=== PATIENT | female | born 1940 | race Caucasian/White ===

== ENCOUNTER 2021-11-25 08:54 | Day surgery (SDC) | payer OTHER ==
[~2021-11-25] VITALS: Ht 154.9 cm; Wt 87.8 kg
[~2021-11-25 08:54] MED LIST: ESTRADIOL; LEVOXYL PO; PANT40 PO; VENL25 PO
--- NOTE | 2021-11-25 10:05 | NUR ---
11/25/21 1005 KAYLIE DC History, Chart, Medications and Allergies reviewed before start of procedure. 3-LEAD EKG REVIEWED WITH PHYSICIAN PRIOR TO START OF PROCEDURE. O2 VIA POM INTACT THROUGHOUT SEDATION/PROCEDURE. MONITOR INTACT WITH CONTINUOUS PULSE OXIMETRY AND INTERMITTENT BP. HURRICAINE SPRAY TO OROPHARYX. GENERAL WITH DR. ESCAMILLA.
--- NOTE | 2021-11-25 10:49 | NUR ---
RECIEVED REPORT FROM KAYLIE DC RN. PT ALERT AND ORIENTED, BUT RESTING COMFORTABLY IN BED.
--- NOTE | 2021-11-25 11:25 | NUR ---
Patient up to Ambulate independently. Gait steady. Discharge instructions reviewed with patient. Patient verbalizes understanding. Copy given to patient to take home. Patient States Post-Procedure ride home has been arranged. Discharged via wheelchair to private car for ride home. ALL BELONGINGS RETURNED TO PATIENT.
== END 2021-11-25 22:34 | disposition home or self-care (01) ==
LOC: ORSCMMR 08:54 → ORD 09:45 → ORSCMMR 09:45
PROVIDERS: Internal Medicine Gastroenterology
PROC: 0DB48ZX Excision of Esophagogastric Junction, Via Natural or Artificial Opening Endoscopic, Diagnostic (ICD-10-PCS; principal; 2021-11-25 09:45)
PROC: 0DBL8ZX Excision of Transverse Colon, Via Natural or Artificial Opening Endoscopic, Diagnostic (ICD-10-PCS; principal; 2021-11-25 09:45)
PROC: 0DBK8ZX Excision of Ascending Colon, Via Natural or Artificial Opening Endoscopic, Diagnostic (ICD-10-PCS; principal; 2021-11-25 09:45)
PROC: 0DBP8ZX Excision of Rectum, Via Natural or Artificial Opening Endoscopic, Diagnostic (ICD-10-PCS; principal; 2021-11-25 09:45)
PROC: 0DB78ZX Excision of Stomach, Pylorus, Via Natural or Artificial Opening Endoscopic, Diagnostic (ICD-10-PCS; principal; 2021-11-25 09:45)
DX: K21.9 Gastro-esophageal reflux disease without esophagitis (principal); Z12.11 Encounter for screening for malignant neoplasm of colon; Z86.010 Personal history of colon polyps; D12.2 Benign neoplasm of ascending colon; D12.3 Benign neoplasm of transverse colon; D12.8 Benign neoplasm of rectum; K57.30 Diverticulosis of large intestine without perforation or abscess without bleeding; K29.70 Gastritis, unspecified, without bleeding; G47.33 Obstructive sleep apnea (adult) (pediatric); E03.9 Hypothyroidism, unspecified; F32.A Depression, unspecified; Z79.899 Other long term (current) drug therapy
CPT/HCPCS: 88305; 88342; A9270; J2704; J7120

== ENCOUNTER → 2022-06-04 | Outpatient (CLI) | payer OTHER | END | disposition home or self-care (01) | LOC: LAB 13:40 → PLD 13:40 → LAB SHORT 13:40 | DX: N95.0 Postmenopausal bleeding (principal) | CPT/HCPCS: 88305 ==

== ENCOUNTER 2023-08-16 07:06 | Day surgery (SDC) | payer OTHER ==
[~2023-08-16] VITALS: Ht 154.9 cm; Wt 78.1 kg
[~2023-08-16 07:06] MED LIST changes: +ACETAMINOPHEN500 M2 PO; +LEVSOD75 PO
--- NOTE | 2023-08-16 07:55 | NUR ---
08/16/23 0755 Eitan Bishop CALL LIGHT WITHIN REACH
[2023-08-16 09:12] VITALS: BP 144/71
--- NOTE | 2023-08-16 09:14 | NUR ---
08/16/23 0913 Wolf Mayorga IV REMOVED INTACT. SITE WNL.
== END 2023-08-16 09:11 | disposition home or self-care (01) ==
LOC: ORSCSDS 07:06
PROVIDERS: Student in an Organized Health Care Education/Training Program
PROC: 08DJ3ZZ Extraction of Right Lens, Percutaneous Approach (ICD-10-PCS; principal; 2023-08-16 08:30)
DX: H25.11 Age-related nuclear cataract, right eye (principal); G47.33 Obstructive sleep apnea (adult) (pediatric); K21.9 Gastro-esophageal reflux disease without esophagitis; H35.30 Unspecified macular degeneration; F41.9 Anxiety disorder, unspecified; F32.A Depression, unspecified; Z87.891 Personal history of nicotine dependence; Z79.899 Other long term (current) drug therapy
CPT/HCPCS: J2250; J7040; V2632

== ENCOUNTER 2023-08-30 08:15 | Day surgery (SDC) | payer OTHER ==
[~2023-08-30] VITALS: Ht 154.9 cm; Wt 78.0 kg
--- NOTE | 2023-08-30 08:40 | NUR ---
08/30/23 0840 MARIANNE DUPONT: 0831 PLEDGIT: [id number]
[2023-08-30 09:39] VITALS: BP 130/77
--- NOTE | 2023-08-30 12:33 | NUR ---
08/30/23 1232 Mary Fulton PATIENT STATES SIGNIFICANT RELIEF OF NAUSEA AFTER 4MG DOSE OF ONDANSETRON VIA IV PER ORDERS.
== END 2023-08-30 10:27 | disposition home or self-care (01) ==
LOC: ORSCSDS 08:15
PROVIDERS: Student in an Organized Health Care Education/Training Program
PROC: 08RK3JZ Replacement of Left Lens with Synthetic Substitute, Percutaneous Approach (ICD-10-PCS; principal; 2023-08-30 09:30)
DX: H25.12 Age-related nuclear cataract, left eye (principal); H35.30 Unspecified macular degeneration; Z96.1 Presence of intraocular lens; K21.9 Gastro-esophageal reflux disease without esophagitis; F32.A Depression, unspecified; E66.9 Obesity, unspecified; Z68.32 Body mass index [BMI] 32.0-32.9, adult; Z79.899 Other long term (current) drug therapy; Z87.891 Personal history of nicotine dependence
CPT/HCPCS: J1100; J2250; J2310; J2405; J3010; J7040; V2632

== ENCOUNTER 2025-07-08 20:28 | Inpatient (IN) | payer OTHER ==
[~2025-07-08] VITALS: Ht 154.9 cm; Wt 83.9 kg
[2025-07-08 21:25] LABS: BASOPHILS ABSOLUTE AUTO 0.04 K/mm3 (0.00-0.23); BASOPHILS PERCENT AUTO 0 % (0-2); EOSINOPHILS ABSOLUTE AUTO 0.14 K/mm3 (0.00-0.68); EOSINOPHILS PERCENT AUTO 1 % (0-6); Hematocrit 40.7 % (33.0-51.0); Hemoglobin 13.6 g/dL (11.5-16.0); IMMATURE GRAN ABSOLUTE AUTO 0.03 K/mm3 (0.00-0.10); IMMATURE GRAN PERCENT AUTO 0 % (0-1); LYMPHOCYTES ABSOLUTE AUTO 2.56 K/mm3 (0.84-5.20); LYMPHOCYTES PERCENT AUTO 26 % (21-46); MONOCYTES ABSOLUTE AUTO 0.83 K/mm3 (0.16-1.47); MONOCYTES PERCENT AUTO 8 % (4-13); Mean Corpuscular HGB Conc 33.4 g/dL (31.5-36.5); Mean Corpuscular Volume 87 fL (80-100); NEUTROPHILS ABSOLUTE AUTO 6.23 K/mm3 (1.96-9.15); NEUTROPHILS PERCENT AUTO 64 % (41-73); NRBC ABSOLUTE 0.00 K/mm3 (0.00-0.02); NRBC Auto 0.0 /100 WBC (0.0-0.2); Platelet Count 265 K/mm3 (150-400); RDW Coefficient Variation 14.6 % (11.7-14.2); RDW Standard Deviation 47.0 fL (35.1-46.3)
[2025-07-08 22:22] LABS: Alanine Aminotransfer (ALT/SGP 80.0 U/L (12-78); Albumin, Blood 3.5 g/dL (3.4-5.0); Albumin/Globulin Ratio 1.0 (0.8-1.8); Anion Gap 9.0 mmol/L (3-11); Aspartate Aminotrans (AST/SGOT 100.0 U/L (12-37); Bilirubin, Total 0.4 mg/dL (0.1-1.0); Blood Urea Nitrogen 12.0 mg/dL (8-24); CO2, Blood 24.0 mmol/L (21-32); Calcium, Blood 9.0 mg/dL (8.5-10.1); Chloride, Blood 108.0 mmol/L (98-108); Creatinine, Blood 0.71 mg/dL (0.40-1.00); Globulin, Blood 3.5 g/dL (2.2-4.0); Glucose, Blood 123.0 mg/dL (70-99); Potassium, Blood 4.0 mmol/L (3.5-5.5); Sodium, Blood 137.0 mmol/L (136-145); Total Protein, Blood 7.0 g/dL (6.4-8.2)
[2025-07-09] MEDS ORDERED: ONDA4ODT MM (00:28)
[2025-07-09 00:49] LABS: Source, Urine Clean Catch
[2025-07-09 00:53] LABS: Bilirubin, Urine Neg (Neg); Glucose Qualitative, Urine Neg (Neg); Ketones, Urine Neg (Neg); Leukocyte Esterase, Urine Neg (Neg); Protein, Urine Neg (Neg); Specific Gravity, Urine 1.010 (1.003-1.022); Urobilinogen, Urine 1+ (Normal)
[2025-07-09 01:08] LABS: Color, Urine Yellow (P-Yellow)
[2025-07-09 01:30] LABS: Prothrombin Time Results 10.6 Sec (9.7-11.5)
[2025-07-09] MEDS ORDERED: Ondansetron HCl 2 MG / ML 2ML Vial IV PRN (02:25)
[2025-07-09] MEDS ORDERED: Ketorolac Tromethamine 15mg Vial IV PRN (02:50)
[2025-07-09] MEDS ORDERED: Atarax10 MG PO (04:34)
[2025-07-09] MEDS ORDERED: GEMTESA75 MG PO (04:34)
[2025-07-09] MEDS ORDERED: EUTHYROX88 MCG PO (04:35)
[2025-07-09 05:46] VITALS: BP 162/76
[2025-07-09 06:27] LABS: BASOPHILS ABSOLUTE AUTO 0.04 K/mm3 (0.00-0.23); BASOPHILS PERCENT AUTO 0 % (0-2); EOSINOPHILS ABSOLUTE AUTO 0.12 K/mm3 (0.00-0.68); EOSINOPHILS PERCENT AUTO 1 % (0-6); Hematocrit 38.7 % (33.0-51.0); Hemoglobin 13.0 g/dL (11.5-16.0); IMMATURE GRAN ABSOLUTE AUTO 0.04 K/mm3 (0.00-0.10); IMMATURE GRAN PERCENT AUTO 0 % (0-1); LYMPHOCYTES ABSOLUTE AUTO 2.22 K/mm3 (0.84-5.20); LYMPHOCYTES PERCENT AUTO 20 % (21-46); MONOCYTES ABSOLUTE AUTO 0.88 K/mm3 (0.16-1.47); MONOCYTES PERCENT AUTO 8 % (4-13); Mean Corpuscular HGB Conc 33.6 g/dL (31.5-36.5); Mean Corpuscular Volume 87 fL (80-100); NEUTROPHILS ABSOLUTE AUTO 7.73 K/mm3 (1.96-9.15); NEUTROPHILS PERCENT AUTO 70 % (41-73); NRBC ABSOLUTE 0.00 K/mm3 (0.00-0.02); NRBC Auto 0.0 /100 WBC (0.0-0.2); Platelet Count 223 K/mm3 (150-400); RDW Coefficient Variation 14.6 % (11.7-14.2); RDW Standard Deviation 46.8 fL (35.1-46.3)
[2025-07-09 06:47] LABS: Alanine Aminotransfer (ALT/SGP 365.0 U/L (12-78); Albumin, Blood 3.3 g/dL (3.4-5.0); Albumin/Globulin Ratio 1.1 (0.8-1.8); Anion Gap 10.0 mmol/L (3-11); Aspartate Aminotrans (AST/SGOT 433.0 U/L (12-37); Bilirubin, Total 0.6 mg/dL (0.1-1.0); Blood Urea Nitrogen 14.0 mg/dL (8-24); CO2, Blood 26.0 mmol/L (21-32); Calcium, Blood 9.0 mg/dL (8.5-10.1); Chloride, Blood 105.0 mmol/L (98-108); Creatinine, Blood 0.71 mg/dL (0.40-1.00); Globulin, Blood 3.1 g/dL (2.2-4.0); Glucose, Blood 128.0 mg/dL (70-99); Magnesium, Blood 2.1 mg/dL (1.6-2.4); Potassium, Blood 3.7 mmol/L (3.5-5.5); Sodium, Blood 137.0 mmol/L (136-145); Total Protein, Blood 6.4 g/dL (6.4-8.2)
[2025-07-09 08:48] VITALS: BP 158/79
[2025-07-09] MEDS ORDERED: Enoxaparin 40 MG/0.4 ML SYR SC SCH (09:00)
[2025-07-09] MEDS ORDERED: NS 1,000 ML IV SCH (17:30)
--- NOTE | 2025-07-09 17:32 | NUR ---
PATIENT HAS BEEN NPO ALL DAY FOR MRI. TEST WAS DONE THIS AFTERNOON WAITING FOR RESULTS AND NEW ORDERS. PATIENT RESTING WITH CALL LIGHT AND BED IN LOW POSITION.
[2025-07-09 19:54] VITALS: BP 153/88
[2025-07-10 05:37] LABS: Hematocrit 36.9 % (33.0-51.0); Hemoglobin 12.3 g/dL (11.5-16.0); Mean Corpuscular HGB Conc 33.3 g/dL (31.5-36.5); Mean Corpuscular Volume 88 fL (80-100); NRBC ABSOLUTE 0.00 K/mm3 (0.00-0.02); NRBC Auto 0.0 /100 WBC (0.0-0.2); Platelet Count 202 K/mm3 (150-400); RDW Coefficient Variation 14.8 % (11.7-14.2); RDW Standard Deviation 47.8 fL (35.1-46.3)
--- NOTE | 2025-07-10 05:58 | NUR ---
SHIFT SUMMARY: PT AOX4, PT SBA WITH FWW TO THE BATHROOM, CALLS APPROPRIATELY AND ABLE TO MAKE NEEDS KNOWN. VERY PLEASANT AND COOPERATIVE IN CARE. TOLERATING MEDICATIONS WELL, PAIN MANAGED WELL WITH NSAIDS. NO ACUTE OVERNIGHT EVENTS. PT IN BED RESTING, BED IN LOWEST POSITION CALL LIGHT IN REACH. CONTINUING CARE.
[2025-07-10 06:13] LABS: Alanine Aminotransfer (ALT/SGP 213.0 U/L (12-78); Albumin, Blood 2.9 g/dL (3.4-5.0); Albumin/Globulin Ratio 1.0 (0.8-1.8); Anion Gap 8.0 mmol/L (3-11); Aspartate Aminotrans (AST/SGOT 142.0 U/L (12-37); Bilirubin, Total 0.8 mg/dL (0.1-1.0); Blood Urea Nitrogen 9.0 mg/dL (8-24); CO2, Blood 25.0 mmol/L (21-32); Calcium, Blood 8.2 mg/dL (8.5-10.1); Chloride, Blood 110.0 mmol/L (98-108); Creatinine, Blood 0.65 mg/dL (0.40-1.00); Globulin, Blood 2.9 g/dL (2.2-4.0); Glucose, Blood 73.0 mg/dL (70-99); Potassium, Blood 3.6 mmol/L (3.5-5.5); Sodium, Blood 139.0 mmol/L (136-145); Total Protein, Blood 5.8 g/dL (6.4-8.2)
[2025-07-10 06:15] VITALS: BP 162/73
[2025-07-10 07:31] VITALS: BP 150/77
[2025-07-10] MEDS ORDERED: NS 1,000 ML IV SCH (15:00)
[2025-07-10 15:37] VITALS: BP 155/84
--- NOTE | 2025-07-10 16:19 | NUR ---
PATIENT RESTED TODAY, SURGEON REVIEWED PLAN OF CARE WITH PATIENT AND SURGERY IS SCHEDULED FOR TOMORROW WITH DR. SALEEM. PATIENT WILL BE NPO AFTER MIDNIGHT AND REMAINS ON A CLEAR LIQUID DIET. PATIENT ATE 1 JELLO CUP, BUT DRINKING WATER TOLERATED.
[2025-07-10 20:15] VITALS: BP 130/84
[2025-07-11] VITALS (20 sets, daily range): BP systolic 141–190; BP diastolic 56–96
--- NOTE | 2025-07-11 06:38 | NUR ---
SHIFT SUMMARY PT ALERT AND ORIENTED TIMES 4. PT ADMITTED FOR BILATERAL ACUTE PANCREATITIS. PT IS STAND BY ASSIST TO TOILET PT HAS NORMAL SALINE FLUIDS RUNNING AT 100/HR. PT IS NPO FOR GALLBLADDER REMOVAL TODAY. PT APPEARED TO SLEEP THROUGHOUT THE NIGHT. PT IS RECEPTIVE TO CARE. PT TAKES MEDICATION WHOLE WITH WATER. PT TOOK MEDICATION WHOLE WITH WATER ONE AT A TIME. PT WAS TURNED Q2 FOR COMFORT AND SKIN BREAKDOWN.CALL LIGHT WITHIN REACH, RAILS TIMES 2, BED IN LOW POSITION.
[2025-07-11] MEDS ORDERED: Bupivacaine 0.25% Epi 1:200000 30 ML Vial ONE (07:36)
--- NOTE | 2025-07-11 07:43 | NUR ---
PT ESCOURTED VIA W/C TO DAY SURGERY.
[2025-07-11] MEDS ORDERED: HYDROmorphone HCl/Pf 1MG SYR IV PRN ×2 (07:50→11:45)
[2025-07-11] MEDS ORDERED: FentaNYL Citrate 50 MCG/ML 2 ML Injection IV PRN ×2 (07:55)
[2025-07-11] MEDS ORDERED: Albuterol 2.5 MG/3 ML VIAL INH PRN (07:55)
[2025-07-11] MEDS ORDERED: Ondansetron HCl 2 MG / ML 2ML Vial IV PRN ×2 (07:55→14:50)
--- NOTE | 2025-07-11 07:56 | NUR ---
PT HAS 22G IV TO LEFT HAND THAT FLUSHES WELL.
[2025-07-11] MEDS ORDERED: Rocuronium Bromide 10 MG/ML 5ML Injection IV ONE (07:57)
[2025-07-11] MEDS ORDERED: FentaNYL Citrate 50 MCG/ML 2 ML Injection ONE ×2 (08:01→12:19)
--- NOTE | 2025-07-11 08:18 | NUR ---
PT REPORTS 1/ ABDOMINAL PAIN AND NAUSEA. MED WITH ZOFRAN 4 MG IVP X 1-SEE EMAR. HISTORY AND ALLERGIES REVIEWED. LUNGS CLEAR. PT DENIES SOB. NPO STATUS CONFIRMED.
[2025-07-11] MEDS ORDERED: Bupivacaine 0.5% W/EPI 1:200000 SDV 30 ML Vial ONE (08:50)
[2025-07-11] MEDS ORDERED: Lidocaine HCl 4% 5 ML SDA ONE (10:16)
[2025-07-11] MEDS ORDERED: Ondansetron HCl 2 MG / ML 2ML Vial ONE ×2 (10:48→12:07)
[2025-07-11] MEDS ORDERED: Dexamethasone Sod Phos 10 MG/ML 1ML VIAL ONE (10:48)
[2025-07-11] MEDS ORDERED: Sugammadex Sodium 200 MG/2ML SDV (100 MG/ML) ONE (10:53)
[2025-07-11] MEDS ORDERED: Metoclopramide HCl 5MG / ML 2ML Vial ONE (12:16)
--- NOTE | 2025-07-11 13:19 | NUR ---
PT BACK IN ROOM FROM SURGERY AT 1315. PT DROWSY, BUT EASILY AROUSABLE, VITALS COMPLETED, GURNEY TO BED SLIDE ASSIST, AND CALL LIGHT PLACED WITHIN REACH.
[2025-07-11 14:22] LABS: BASOPHILS ABSOLUTE AUTO 0.03 K/mm3 (0.00-0.23); BASOPHILS PERCENT AUTO 0 % (0-2); EOSINOPHILS ABSOLUTE AUTO 0.03 K/mm3 (0.00-0.68); EOSINOPHILS PERCENT AUTO 0 % (0-6); Hematocrit 40.7 % (33.0-51.0); Hemoglobin 13.3 g/dL (11.5-16.0); IMMATURE GRAN ABSOLUTE AUTO 0.13 K/mm3 (0.00-0.10); IMMATURE GRAN PERCENT AUTO 1 % (0-1); LYMPHOCYTES ABSOLUTE AUTO 0.80 K/mm3 (0.84-5.20); LYMPHOCYTES PERCENT AUTO 6 % (21-46); MONOCYTES ABSOLUTE AUTO 0.38 K/mm3 (0.16-1.47); MONOCYTES PERCENT AUTO 3 % (4-13); Mean Corpuscular HGB Conc 32.7 g/dL (31.5-36.5); Mean Corpuscular Volume 88 fL (80-100); NEUTROPHILS ABSOLUTE AUTO 12.46 K/mm3 (1.96-9.15); NEUTROPHILS PERCENT AUTO 90 % (41-73); NRBC ABSOLUTE 0.00 K/mm3 (0.00-0.02); NRBC Auto 0.0 /100 WBC (0.0-0.2); Platelet Count 217 K/mm3 (150-400); RDW Coefficient Variation 15.0 % (11.7-14.2); RDW Standard Deviation 49.4 fL (35.1-46.3)
--- NOTE | 2025-07-11 14:32 | NUR ---
THIS RN GAVE REPORT TO JARAD TESFAYE. BRIEN TO ASSUME CARE OF PT.
[2025-07-11 14:44] LABS: Alanine Aminotransfer (ALT/SGP 158.0 U/L (12-78); Albumin, Blood 3.4 g/dL (3.4-5.0); Albumin/Globulin Ratio 0.9 (0.8-1.8); Anion Gap 8.0 mmol/L (3-11); Aspartate Aminotrans (AST/SGOT 73.0 U/L (12-37); Bilirubin, Total 0.5 mg/dL (0.1-1.0); Blood Urea Nitrogen 6.0 mg/dL (8-24); CO2, Blood 26.0 mmol/L (21-32); Calcium, Blood 8.5 mg/dL (8.5-10.1); Chloride, Blood 107.0 mmol/L (98-108); Creatinine, Blood 0.32 mg/dL (0.40-1.00); Globulin, Blood 3.7 g/dL (2.2-4.0); Glucose, Blood 146.0 mg/dL (70-99); Potassium, Blood 3.9 mmol/L (3.5-5.5); Sodium, Blood 137.0 mmol/L (136-145); Total Protein, Blood 7.1 g/dL (6.4-8.2)
[2025-07-11] MEDS ORDERED: Ondansetron HCl 2 MG / ML 2ML Vial IV ONE (14:50)
--- NOTE | 2025-07-11 16:04 | NUR ---
THIS RN TO ASSUME CARE OF PT AT 1431, REPORT RECEIVED FROM SARINA RN
--- NOTE | 2025-07-11 18:14 | NUR ---
SHIFT SUMMARY SINCE ASSUMPTION OF CARE, PT AOX4, SBA TO THE BR WITH THE FWW. MEDICATED FOR PAIN AND NAUSEA PER THE EMAR. REPOSITIONS SELF IN BED. CALLS AND MAKES HER NEEDS KNOWN. LAPS TO ABD CDI. PT VOIDING APPROPRIATELY SINCE THE PROCEDURE. CALL LIGHT WITHIN REACH, BED LOCKED AND IN THE LOWEST POSITION. WILL REPORT TO ONCOMING NURSE.
[2025-07-12 00:04] VITALS: BP 139/64
[2025-07-12 04:20] VITALS: BP 122/58
[2025-07-12 05:47] LABS: Alanine Aminotransfer (ALT/SGP 105.0 U/L (12-78); Albumin, Blood 2.7 g/dL (3.4-5.0); Albumin/Globulin Ratio 0.8 (0.8-1.8); Anion Gap 9.0 mmol/L (3-11); Aspartate Aminotrans (AST/SGOT 37.0 U/L (12-37); Bilirubin, Total 0.5 mg/dL (0.1-1.0); Blood Urea Nitrogen 9.0 mg/dL (8-24); CO2, Blood 24.0 mmol/L (21-32); Calcium, Blood 8.1 mg/dL (8.5-10.1); Chloride, Blood 108.0 mmol/L (98-108); Creatinine, Blood 0.63 mg/dL (0.40-1.00); Globulin, Blood 3.2 g/dL (2.2-4.0); Glucose, Blood 132.0 mg/dL (70-99); Potassium, Blood 3.9 mmol/L (3.5-5.5); Sodium, Blood 137.0 mmol/L (136-145); Total Protein, Blood 5.9 g/dL (6.4-8.2)
--- NOTE | 2025-07-12 06:22 | NUR ---
SHIFT SUMMARY PT ALERT AND ORIENTED TIMES 4. PT ADMITTED FOR BILATERAL ACUTE PANCREATITIS. PT IS STAND BY ASSIST TO TOILET PT HAS NORMAL SALINE FLUIDS RUNNING AT 100/HR. PT HAD GALLBLADDER REMOVAL TODAY. VERIFIED RESUMING AM MEDICATION EFFEXOR 75MG AND PROTONIX 40MG, PT APPEARED TO SLEEP THROUGHOUT THE NIGHT. PT IS RECEPTIVE TO CARE. PT TAKES MEDICATION WHOLE WITH WATER. PT TOOK MEDICATION WHOLE WITH WATER ONE AT A TIME. PT WAS TURNED Q2 FOR COMFORT AND SKIN BREAKDOWN. PT APPEARS TO BE RESTING COMFORTABLY. CALL LIGHT WITHIN REACH, RAILS TIMES 2, BED IN LOW POSITION.
[2025-07-12 07:19] VITALS: BP 130/62
[2025-07-12 16:45] VITALS: BP 128/60
--- NOTE | 2025-07-12 18:15 | NUR ---
SHIFT SUMMARY PT IS A/OX4 PLEASANT AND COOPERATIVE WITH CARE. PT POD 1 LAP YELENA AND HAS 4 LAP SITES ON ABDOMEN WHICH ARE C/D/I. PT REPORTS PAIN AT THE INCISION SITES AND IS MEDICATED PER EMAR. NO ACUTE CHANGES THIS SHIFT. CALL LIGHT WITHIN REACH AND IS ABLE TO MAKE HER NEEDS KNOWN.
[2025-07-12 19:39] VITALS: BP 125/59
[2025-07-13 04:07] VITALS: BP 144/65
--- NOTE | 2025-07-13 06:21 | NUR ---
SHIFT SUMMARY PT ALERT AND ORIENTED TIMES 4. PT ADMITTED FOR BILATERAL ACUTE PANCREATITIS. PT IS STAND BY ASSIST TO TOILET PT HAS NORMAL SALINE FLUIDS RUNNING AT 100/HR. PT HAD GALLBLADDER REMOVAL TODAY. RESUMED AM MEDICATION EFFEXOR 75MG AND PROTONIX 40MG, PT APPEARED TO SLEEP THROUGHOUT THE NIGHT. PT IS RECEPTIVE TO CARE. PT TAKES MEDICATION WHOLE WITH WATER. PT ABLE TO AMBULATE WITH STAND BY ASSIST TO BATHROOM. PT TOOK MEDICATION WHOLE WITH WATER ONE AT A TIME. PT WAS TURNED Q2 FOR COMFORT AND SKIN BREAKDOWN. PT APPEARS TO BE RESTING COMFORTABLY. CALL LIGHT WITHIN REACH, RAILS TIMES 2, BED IN LOW POSITION.
[2025-07-13 07:32] VITALS: BP 149/71
--- NOTE | 2025-07-13 11:44 | NUR ---
DISCHARGE PT DISCHARGED HOME VIA W/C ACCOMPANIED BY [employer] SUPERVISOR. [employer] SUPER[employer]OR REMOVED IV. COBAN AND GAUZE APPLIED. MEDICATIONS FAXED TO [facility]. [facility].
== END 2025-07-13 11:40 | disposition home or self-care (01) | DRG 419 ==
LOC: ER 20:28 → MEDS 07-09 02:22
PROVIDERS: Emergency Medicine; Internal Medicine; Student in an Organized Health Care Education/Training Program; Surgery; ADMIT Student in an Organized Health Care Education/Training Program
PROC: 8E0W4CZ Robotic Assisted Procedure of Trunk Region, Percutaneous Endoscopic Approach (ICD-10-PCS; 2025-07-11)
PROC: 0FT44ZZ Resection of Gallbladder, Percutaneous Endoscopic Approach (ICD-10-PCS; principal; 2025-07-11 09:00)
DX: K85.10 Biliary acute pancreatitis without necrosis or infection (principal); E03.9 Hypothyroidism, unspecified; I10 Essential (primary) hypertension; G89.29 Other chronic pain; K21.9 Gastro-esophageal reflux disease without esophagitis; M19.90 Unspecified osteoarthritis, unspecified site; Z66 Do not resuscitate; F41.9 Anxiety disorder, unspecified; F32.9 Major depressive disorder, single episode, unspecified; N32.81 Overactive bladder; Z79.890 Hormone replacement therapy; Z79.899 Other long term (current) drug therapy; Z98.51 Tubal ligation status; Z85.828 Personal history of other malignant neoplasm of skin; Z87.891 Personal history of nicotine dependence; Z96.1 Presence of intraocular lens; Z98.42 Cataract extraction status, left eye; Z98.41 Cataract extraction status, right eye; Z88.2 Allergy status to sulfonamides; Z88.8 Allergy status to other drugs, medicaments and biological substances
CPT/HCPCS: 36415; 71046; 74181; 76700; 80053; 81003; 82947; 83605; 83690; 83735; 85025; 85027; 85610; 86850; 86900; 86901; 88304; 93005; 93010; 99285-25; A9270; J1100; J1650; J1885; J2003; J2405; J2704; J2765; J3010; J7030; J7120